=== PATIENT | male | born 1960 | race Caucasian/White ===

== ENCOUNTER 2018-08-21 10:26 | Emergency (ER) | payer MEDICAID ==
[~2018-08-21] VITALS: Ht 167.6 cm; Wt 79.4 kg
[2018-08-21 10:30] VITALS: Ht 167.6 cm; Wt 79.4 kg
[2018-08-21] MEDS ORDERED: NORVASC5 MG PO (11:00)
[2018-08-21 12:27] VITALS: BP 167/89
== END 2018-08-21 12:28 | disposition home or self-care (01) ==
LOC: D.ER 10:26
DX: I10 Essential (primary) hypertension (principal); Z91.14 Patient's other noncompliance with medication regimen

== ENCOUNTER 2019-08-21 06:24 | Emergency (ER) | payer MEDICAID ==
[~2019-08-21] VITALS: Ht 167.6 cm; Wt 79.5 kg
[~2019-08-21 06:24] MED LIST: NORVASC5 MG PO
[2019-08-21 06:47] VITALS: Ht 167.6 cm; Wt 79.5 kg
[2019-08-21] MEDS ORDERED: NORVASC10 MG PO (07:38)
[2019-08-21 08:53] VITALS: BP 175/88
== END 2019-08-21 08:53 | disposition home or self-care (01) ==
LOC: D.ER 06:24
DX: I10 Essential (primary) hypertension (principal); Z91.14 Patient's other noncompliance with medication regimen

== ENCOUNTER 2019-09-21 18:31 | Inpatient (IN) | payer BC ==
[~2019-09-21] VITALS: Ht 167.6 cm; Wt 79.5 kg
[~2019-09-21 18:31] MED LIST changes: +NORVASC10 MG PO
[2019-09-21 19:39] LABS: BASOPHILS 0.1 % (0-2); EOSINOPHILS 0 % (0-7); HEMATOCRIT 43.9 % (42.0-54.0); HEMOGLOBIN 14.9 g/dL (13.5-17.5); IMMATURE GRANULOCYTES 0.3 % (0-5); LYMPHOCYTES 6.3 % (15-50); MCH 30.5 pg (26.0-34.0); MCHC 33.9 g/dL (31.0-37.0); MCV 89.8 fL (80.0-100.0); MEAN PLATELET VOLUME 9.6 fL (7.4-10.4); MONOCYTES 6.3 % (2-11); PLATELET COUNT 151 10x3/uL (130-400); RBC 4.89 10x6/uL (4.20-6.10); RDW 14.4 % (11.5-14.5); WBC 8.6 10x3/uL (4.8-10.8)
[2019-09-21 19:51] LABS: INR 1.21 (0.85-1.17); PROTIME 15.3 SECONDS (11.6-15.0)
[2019-09-21 19:52] LABS: APTT 33.9 SECONDS (22.8-39.4)
[2019-09-21 19:55] LABS: CALC OSMOLALITY 264 mosm/kg (275-300); CALCIUM 7.8 mg/dL (8.5-10.1); CARBON DIOXIDE 25.8 mmol/L (21.0-32.0); CHLORIDE - SERUM 99 mmol/L (98-107); CREATININE - SERUM 1.5 mg/dL (0.6-1.3); GLUCOSE 110 mg/dL (74-106); POTASSIUM - SERUM 3.8 mmol/L (3.5-5.1); SODIUM 131 mmol/L (136-145); UREA NITROGEN 16 mg/dL (7-18); eGFR NON AFRICAN AMERICAN 51 mL/min (90-120)
[2019-09-21 20:00] VITALS: BP 151/70
[2019-09-21 20:06] LABS: ALBUMIN 2.8 g/dL (3.4-5.0); ALKALINE PHOSPHATASE 77 U/L (30-120); ALT (SGPT) 71 U/L (10-68); BILIRUBIN - TOTAL 1.32 mg/dL (0.2-1.3); CKMB 0.6 U/L (0.0-3.6); CREATINE KINASE 85 UL (21-232); PRO BNP 345 pg/mL (0-125); PROTEIN - SERUM 5.5 g/dL (6.4-8.2)
[2019-09-21 20:09] LABS: TROPONIN-I < 0.017 ng/mL (0.000-0.060)
[2019-09-21 20:15] VITALS: BP 151/70
[2019-09-21 21:00] VITALS: BP 142/71
[2019-09-21 22:00] VITALS: BP 163/64
[2019-09-21 23:55] VITALS: Ht 167.6 cm; Wt 79.5 kg
[2019-09-22 00:30] VITALS: BP 141/64
[2019-09-22 04:49] LABS: BASOPHILS 0 % (0-2); EOSINOPHILS 0.1 % (0-7); HEMATOCRIT 41.8 % (42.0-54.0); IMMATURE GRANULOCYTES 0.4 % (0-5); MCHC 33.5 g/dL (31.0-37.0); MCV 89.7 fL (80.0-100.0); MEAN PLATELET VOLUME 9.9 fL (7.4-10.4); MONOCYTES 6.6 % (2-11); NEUTROPHILS 79.9 % (40-80); PLATELET COUNT 149 10x3/uL (130-400); RBC 4.66 10x6/uL (4.20-6.10); RDW 14.3 % (11.5-14.5)
[2019-09-22 05:15] LABS: ALBUMIN 2.5 g/dL (3.4-5.0); ANION GAP 9.1 mmol/L (8-16); BILIRUBIN - TOTAL 0.76 mg/dL (0.2-1.3); CALCIUM 7.9 mg/dL (8.5-10.1); CARBON DIOXIDE 27.7 mmol/L (21.0-32.0); CREATININE - SERUM 1.3 mg/dL (0.6-1.3); POTASSIUM - SERUM 3.8 mmol/L (3.5-5.1); PROTEIN - SERUM 5.2 g/dL (6.4-8.2)
[2019-09-22 05:16] VITALS: BP 151/81
[2019-09-22 09:36] VITALS: BP 131/75
[2019-09-22 14:24] VITALS: BP 124/65
[2019-09-22 20:00] VITALS: BP 154/74
--- NOTE | 2019-09-22 20:55 | NUR ---
EVENING ROUNDS COMPLETE. PT SITTING UP IN BED. AAOX4. NO SINGS OF DISTRESS. PT DENIES ANY PAIN OR NEEDS AT THIS TIME. CL IN REACH, BED IN LOWEST POSITION.
--- NOTE | 2019-09-22 20:56 | NUR ---
MARVIN WITH INFECTION CONTROLL CALLED AT THIS TIME. PT COVID-19 TEST IS NEGATIVE.
[2019-09-23] VITALS: BP 142/75
[2019-09-23 04:00] VITALS: BP 135/75
[2019-09-23 06:32] LABS: BASOPHILS 0.7 % (0-2); EOSINOPHILS 5.7 % (0-7); HEMATOCRIT 43.4 % (42.0-54.0); IMMATURE GRANULOCYTES 0.2 % (0-5); LYMPHOCYTES 29.7 % (15-50); MCH 30.9 pg (26.0-34.0); MCHC 34.6 g/dL (31.0-37.0); MCV 89.5 fL (80.0-100.0); MEAN PLATELET VOLUME 10.3 fL (7.4-10.4); NEUTROPHILS 52.7 % (40-80); PLATELET COUNT 156 10x3/uL (130-400); RBC 4.85 10x6/uL (4.20-6.10); RDW 14.4 % (11.5-14.5); WBC 5.7 10x3/uL (4.8-10.8)
[2019-09-23 06:33] LABS: ALBUMIN 2.6 g/dL (3.4-5.0); ANION GAP 9.6 mmol/L (8-16); BILIRUBIN - TOTAL 0.39 mg/dL (0.2-1.3); CALCIUM 8.1 mg/dL (8.5-10.1); CARBON DIOXIDE 28.4 mmol/L (21.0-32.0); CREATININE - SERUM 1.2 mg/dL (0.6-1.3); MAGNESIUM - SERUM 2.1 mg/dL (1.8-2.4); PROTEIN - SERUM 5.1 g/dL (6.4-8.2)
--- NOTE | 2019-09-23 07:10 | NUR ---
REPORT RECEIVED FROM PRODUCTION WELDING SUPERVISOR AND PATIENT CARE ASSUMED. PATIENT LAYING IN BED ON LT SIDE WITH EYES CLOSED AND BREATHING EVENLY. WILL CONTINUE WITH PLAN OF CARE. SR UP X 2 BED IN LOW POSITION AND CALL LIGHT IN REACH.
--- NOTE | 2019-09-23 10:58 | NUR ---
PATIENT AWAKE, ALERT AND ORIENTED X 4. PATIENT IS STABLE AND VSS. PATIENT DENIES ANY NEEDS OR PAIN. PATIENT DECLINED A SHOWER. WILL CONTINUE TO MONITOR. SR UP X 2 BED IN LOW POSITION AND CALL LIGHT IN REACH.
[2019-09-23 11:06] LABS: BACTERIA FEW /hpf (NEGATIVE); BILIRUBIN NEGATIVE (NEGATIVE); GLUCOSE NEGATIVE (NEGATIVE); KETONE MODERATE mg/dL (NEGATIVE); NITRITE NEGATIVE (NEGATIVE); RED CELLS - URINE OCC /hpf (0-5); UROBILINOGEN NORMAL (NORMAL); WHITE CELLS - URINE NSEEN /hpf (NEGATIVE)
[2019-09-23 11:07] LABS: EPITHELIAL CELLS RARE /hpf (0-5)
--- NOTE | 2019-09-23 19:45 | NUR ---
REPORT RECEIVED AND ROUNDING COMPLETE. PAITENT LAYING IN BED IN HIGH FOWLERS, LEFT FOREARM PIV THAT IS SALINE LOCKED, PIV FLUSHES EASILY. WEARING NASAL CANNULA WITH O2 AT 2L. LUNGS CLEAR AND DIMINISHED AT BASES. PATINET STATES HE WOULD LIKE TO HAVE SOME BATH CLOTHES TO FRESHEN UP A BIT, RECEIVED BATH TOWELS TO DO THIS. PATIENT IS A&O X4. NO S/SX OF DISTRESS NOTED AT THIS TIME. CALL LIGHT WITHIN REACH AND BED IN LOWEST LOCKED POSITION.
[2019-09-23 20:00] VITALS: BP 145/81
[2019-09-24 04:00] VITALS: BP 160/105
[2019-09-24 06:44] LABS: BASOPHILS 0.7 % (0-2); EOSINOPHILS 6.6 % (0-7); HEMATOCRIT 43.1 % (42.0-54.0); HEMOGLOBIN 14.8 g/dL (13.5-17.5); IMMATURE GRANULOCYTES 0.2 % (0-5); LYMPHOCYTES 37.1 % (15-50); MCH 30.3 pg (26.0-34.0); MCHC 34.3 g/dL (31.0-37.0); MCV 88.1 fL (80.0-100.0); MEAN PLATELET VOLUME 10.2 fL (7.4-10.4); MONOCYTES 6.7 % (2-11); NEUTROPHILS 48.7 % (40-80); RBC 4.89 10x6/uL (4.20-6.10); RDW 14.1 % (11.5-14.5); WBC 6.1 10x3/uL (4.8-10.8)
[2019-09-24 06:50] LABS: PLATELET COUNT 202 10x3/uL (130-400)
[2019-09-24 07:18] LABS: ALBUMIN 2.6 g/dL (3.4-5.0); BILIRUBIN - TOTAL 0.3 mg/dL (0.2-1.3); CALCIUM 8.5 mg/dL (8.5-10.1); CARBON DIOXIDE 27.7 mmol/L (21.0-32.0); CREATININE - SERUM 1.2 mg/dL (0.6-1.3); MAGNESIUM - SERUM 2.2 mg/dL (1.8-2.4); POTASSIUM - SERUM 3.7 mmol/L (3.5-5.1); PROTEIN - SERUM 5.8 g/dL (6.4-8.2)
[2019-09-24 09:26] VITALS: BP 146/70
[2019-09-24 15:52] VITALS: BP 156/76
--- NOTE | 2019-09-24 19:32 | NUR ---
RPEORT RECEIVED AND ROUNDING COMPLETE. LAYINGIN BED IN LOW FOWLERS. LEFT FOREARM PIV SALINE LOCKED, FLUSHES EASILY. NOT COMPLAINTS AT THIS TIME, NOT NEEDS, NO S/SX OF DISTRESS. PATIENT DID ASK WHAY HE WAS STILL HER AND WHEN HE COULD GO HOME. CALL LIGHT WITHIN REACH AND E BED IN LOWEST LOCKED POSITION.
[2019-09-24 20:00] VITALS: BP 154/74
[2019-09-25] VITALS: BP 147/74
[2019-09-25 04:00] VITALS: BP 150/78
[2019-09-25 06:20] LABS: BASOPHILS 0.4 % (0-2); EOSINOPHILS 6.1 % (0-7); HEMATOCRIT 42.6 % (42.0-54.0); HEMOGLOBIN 14.6 g/dL (13.5-17.5); IMMATURE GRANULOCYTES 0.6 % (0-5); LYMPHOCYTES 32.6 % (15-50); MCH 30.2 pg (26.0-34.0); MCHC 34.3 g/dL (31.0-37.0); MEAN PLATELET VOLUME 9.9 fL (7.4-10.4); MONOCYTES 8.8 % (2-11); NEUTROPHILS 51.5 % (40-80); PLATELET COUNT 221 10x3/uL (130-400); RBC 4.84 10x6/uL (4.20-6.10); RDW 13.9 % (11.5-14.5); WBC 7.8 10x3/uL (4.8-10.8)
[2019-09-25 06:51] LABS: ALBUMIN 2.6 g/dL (3.4-5.0); ANION GAP 8.5 mmol/L (8-16); BILIRUBIN - TOTAL 0.41 mg/dL (0.2-1.3); CALCIUM 8.3 mg/dL (8.5-10.1); CARBON DIOXIDE 27.3 mmol/L (21.0-32.0); CREATININE - SERUM 1.3 mg/dL (0.6-1.3); MAGNESIUM - SERUM 2.2 mg/dL (1.8-2.4); POTASSIUM - SERUM 3.8 mmol/L (3.5-5.1); PROTEIN - SERUM 5.8 g/dL (6.4-8.2)
--- NOTE | 2019-09-25 09:09 | NUR ---
PT DISCHARGED HOME VIA AMBULATION. PT REFUSED WHEELCHAIR. PIV REMOVED WITH CATHETER TIP FULLY INTACT. PT SIGNED PROPER DISCHARGE PAPERWORK AND REMOVED ALL VALUABLES FROM THE ROOM.
== END 2019-09-25 09:10 | disposition home or self-care (01) | DRG 202 ==
LOC: D.ER 18:31 → D.M2 21:19
PROVIDERS: Family Medicine; ADMIT Family Medicine; ATTEND Family Medicine
DX: J40 Bronchitis, not specified as acute or chronic (principal); E87.1 Hypo-osmolality and hyponatremia; N17.9 Acute kidney failure, unspecified; J96.01 Acute respiratory failure with hypoxia; I10 Essential (primary) hypertension

== ENCOUNTER 2019-10-29 13:00 | Emergency (ER) | payer BC ==
[~2019-10-29] VITALS: Ht 167.6 cm; Wt 75.0 kg
[2019-10-29 13:30] VITALS: Ht 167.6 cm; Wt 75.0 kg
[2019-10-29] MEDS ORDERED: NORVASC10 MG PO (13:58)
[2019-10-29 14:18] VITALS: BP 158/68
== END 2019-10-29 14:22 | disposition home or self-care (01) ==
LOC: D.ER 13:00
DX: I10 Essential (primary) hypertension (principal); Z76.0 Encounter for issue of repeat prescription